=== PATIENT | male | born 1985 | race Caucasian/White ===

== ENCOUNTER 2018-06-24 11:09 | Emergency (ER) | payer SELFPAY ==
[~2018-06-24] VITALS: Ht 167.6 cm; Wt 79.5 kg
[2018-06-24 13:44] LABS: BASOPHILS % 0.7 % (0.0-2.0); EOSINOPHILS % 6.6 % (0.0-5.0); HEMATOCRIT. 44.9 % (42.0-52.0); HEMOGLOBIN. 15.9 g/dL (14.0-18.0); LYMPHOCYTES % 17.7 % (20.0-50.0); MEAN CORPUSCULAR HEMOGLOBIN 32.2 pg (28.0-32.0); MEAN CORPUSCULAR VOLUME 90.9 fL (80.0-94.0); MEAN PLATELET VOLUME 8.1 fl (7.4-10.4); MONOCYTES % 7.2 % (2.0-8.0); NEUTROPHILS % 67.8 % (40.0-76.0); PLATELET 276 x1000/uL (130-400); RED BLOOD CELL COUNT 4.94 mill/uL (4.7-6.1); RED CELL DISTRIBUTION WIDTH 12.5 % (11.6-14.6)
[2018-06-24 13:48] LABS: INR 1.1; PROTHROMBIN TIME 10.6 sec (9.1-11.1)
[2018-06-24 13:50] LABS: CHLORIDE 106 mEq/L (98-107)
[2018-06-24] MEDS ORDERED: KETOROLAC 30MG/ML VIAL IV ONE (14:15)
[2018-06-24] MEDS ORDERED: SODIUM CHLORIDE 0.9% 500 ML IV ONE (14:15)
[2018-06-24 16:30] VITALS: BP 136/86
== END 2018-06-24 16:55 | disposition home or self-care (01) ==
LOC: ER 12:09
DX: R51 Headache (principal); R53.1 Weakness
CPT/HCPCS: 36415; 80053; 83690; 84484; 85025; 85610; 93005; 96374; 99285; J1885; J7040